=== PATIENT | female | born 1955 ===

== ENCOUNTER 2023-12-26 13:31 | Emergency (ER) | payer SELFPAY ==
[~2023-12-26] VITALS: Ht 160 cm; Wt 49.1 kg
[2023-12-26 13:40] VITALS: BP 155/79; TEMP 98.1
[2023-12-26] MEDS ORDERED: TRIAMCINOLONE A15 GM TP (16:14)
[2023-12-26 16:47] VITALS: PULSE 69
== END 2023-12-26 16:47 | disposition home or self-care (01) ==
LOC: COL.ER 13:31
DX: L20.9 Atopic dermatitis, unspecified (principal)